=== PATIENT | female | born 2000 | race Two or more races ===

== ENCOUNTER 2021-01-07 09:56 | Emergency (ER) | payer MEDICAID ==
[~2021-01-07] VITALS: Ht 157.5 cm; Wt 43.1 kg
--- NOTE | 2021-01-07 10:05 | NUR ---
PT CAME IN C/O NAUSEA, VOMITING, DIARRHEA SINCE YESTERDAY, ATE MCDONALDS. +. AOX4, NO SOB NOTED AT THIS TIME, NO SIGN OF ANY ACUTE DISTRESS NOTED. NO C/O PAIN AT THIS TIME. WILL CONTINUE WITH PLAN OF CARE
--- NOTE | 2021-01-07 10:10 | NUR ---
PIV INSERTED IN RAC G#22, GOOD BLOOD RETURN NOTED. INTACT, PATENT AND FLUSHING WELL. PT TOLERATED WELL. WILL CONTINUE TO MONITOR
[2021-01-07] MEDS ORDERED: ONDANSETRON HCL/PF 4 MG/2 ML VIAL ONE (10:17)
[2021-01-07] MEDS ORDERED: FAMOTIDINE/PF INJ 20 MG/2 ML VIAL IV ONE (10:17)
[2021-01-07 10:21] LABS: BASOPHILS % (AUTO) 0.5 % (0.0-2.0); EOSINOPHILS % (AUTO) 0.1 % (0.0-6.0); HEMATOCRIT 41 % (33-45); HEMOGLOBIN 13.8 g/dL (11.5-14.8); LYMPHOCYTES # (AUTO) 0.9 K/uL (0.8-4.8); LYMPHOCYTES % (AUTO) 9.2 % (20.0-44.0); MEAN CORPUSCULAR HGB CONC 34 g/dl (31.0-36.0); MEAN CORPUSCULAR VOLUME 90 fL (82-100); MONOCYTES # (AUTO) 0.2 K/uL (0.1-1.30); NEUTROPHILS # (AUTO) 8.7 K/uL (1.8-8.9); NEUTROPHILS % (AUTO) 88.2 % (43.0-81.0); PLATELET COUNT (AUTO) 299 K/uL (150-450); WHITE BLOOD COUNT (AUTO) 9.8 K/uL (4.3-11.0)
[2021-01-07] MEDS: IV NS 0.9% 1,000 ML BAG IV ONE (10:23)
[2021-01-07] MEDS: ONDANSETRON HCL/PF 4 MG/2 ML VIAL IV ONE (10:24)
[2021-01-07] MEDS: FAMOTIDINE/PF INJ 20 MG/2 ML VIAL IV ONE (10:24)
[2021-01-07 10:30] LABS: CALCIUM, SERUM 9.2 mg/dL (8.5-10.1); CREATININE 0.8 mg/dL (0.6-1.3); POTASSIUM 3.3 mmol/L (3.5-5.1)
[2021-01-07] MEDS ORDERED: ONDANSETRON HCL/PF 4 MG/2 ML VIAL IVP ONE (10:30)
[2021-01-07] MEDS ORDERED: MORPHINE SULFATE INJ 2 MG/ML DISP.SYRIN IV ONE (10:30)
[2021-01-07 10:36] LABS: BILIRUBIN,DIRECT 0.1 mg/dL (0.0-0.2); BILIRUBIN,TOTAL 0.4 mg/dL (0.2-1.0); TOTAL PROTEIN, SERUM 8.7 g/dL (6.4-8.2)
[2021-01-07] MEDS ORDERED: METOCLOPRAMIDE HCL 10 MG/2 ML VIAL ONE ×2 (11:26→12:25)
[2021-01-07] MEDS: METOCLOPRAMIDE HCL 10 MG/2 ML VIAL IV ONE ×2 (11:29→12:26)
[2021-01-07] MEDS: IV LR 1000 ML 1,000 ML IV ONE (12:03)
[2021-01-07] MEDS ORDERED: ONDA4TAB5 PO (12:32)
[2021-01-07 12:42] LABS: BILIRUBIN,URINE Negative (NEGATIVE); COLOR,URINE YELLOW (YELLOW); LEUKOCYTE ESTERASE ,URINE Negative (NEGATIVE); NITRITE, URINE Negative (NEGATIVE); PH,URINE 7.5 (5.0-8.0); PROTEIN,URINE Negative (NEGATIVE); UGLUCOSE Negative (NEGATIVE); UROBILINOGEN,URINE 0.2 EU/dL (0.2)
[2021-01-07 13:02] LABS: BACTERIA,URINE Moderate /HPF (None Seen); RBC,URINE 0-2 /HPF (0-2); SQUAMOUS EPITHELIAL CELL,UR Moderate /HPF (None Seen)
[2021-01-07 13:03] LABS: WBC,URINE 0-4 /HPF (0-3)
--- NOTE | 2021-01-07 13:15 | NUR ---
Patient discharged to home in stable condition. Written and verbal after care instructions given. Patient verbalizes understanding of instruction.
[2021-01-07 13:16] VITALS: BP 111/63
== END 2021-01-07 13:16 | disposition home or self-care (01) ==
LOC: ER 09:59
DX: O99.611 Diseases of the digestive system complicating pregnancy, first trimester (principal); K52.9 Noninfective gastroenteritis and colitis, unspecified; E86.0 Dehydration; Z3A.08 8 weeks gestation of pregnancy
CPT/HCPCS: 36415; 76856; 80048; 80076; 81001; 83690; 84702; 84703; 85025; 87086; 96361; 96374; 96375; 96376; 99284; J2405; J2765 ×2; J3490; J7030; J7120 ×2